=== PATIENT | female | born 1995 ===

== ENCOUNTER 2024-09-21 20:23 | Emergency (ER) | payer OTHER ==
[2024-09-21] MEDS: Acetaminophen 500 MG Tab PO ONE (21:27)
== END 2024-09-21 21:55 | disposition home or self-care (01) ==
LOC: CC.ED 20:23
DX: M54.50 Low back pain, unspecified (principal); G89.29 Other chronic pain; V48.5XXA Car driver injured in noncollision transport accident in traffic accident, initial encounter
CPT/HCPCS: 99283; A9270-GY